=== PATIENT | female | born 1985 | race Caucasian/White ===

== ENCOUNTER 2020-05-15 22:54 | Emergency (ER) | payer SELFPAY ==
[2020-05-15 22:55] VITALS: BP 119/87; PULSE 104; RESP 16; TEMP 36.7; O2SAT 98; BMI 25.7
--- NOTE | 2020-05-15 23:20 | CTR_ITS ---
PROCEDURE INFORMATION: Exam: CT Head Without Contrast Exam date and time: 05/15/2020 11:34 PM Age: 35 years old Clinical indication: Patient HX: PT claims near syncope - felt like she was about to have a seizure; Additional info: Brittanie TECHNIQUE: Imaging protocol: Computed tomography of the head without contrast. Radiation optimization: All CT scans at this facility use at least one of these dose optimization techniques: automated exposure control; mA and/or kV adjustment per patient size (includes targeted exams where dose is matched to clinical indication); or iterative reconstruction. COMPARISON: No relevant prior studies available. RADIATION DOSE METRICS: Total DLP (mGy-cm): 774 FINDINGS: Brain: Normal. No hemorrhage. Unremarkable white matter. No mass effect. Cerebral ventricles: No ventriculomegaly. Bones/joints: Unremarkable. No acute fracture. Paranasal sinuses: Visualized sinuses are unremarkable. No fluid levels. Mastoid air cells: Visualized mastoid air cells are well aerated. Soft tissues: Unremarkable. CT/CT head wo con* 20264 IMPRESSION: No acute intracranial abnormality. Radiation Dose CTDIVOL = (mGy): DLP = 774 (mGy-cm)
--- NOTE | 2020-05-15 23:22 | ECG_ITS ---
[facility] Test Date: 2020-05-16 Pat Name: Joie Truong Department: Room: Gender: Female Account Executive: : 1985 Requested By: Edward Valle Order Number: [id number] Alf MD: Ana Westfall M.D. Measurements Intervals [place] Rate: 102 P: 68 LA: 128 QRS: -1 QRSD: 90 T: 53 QT: 347 QTc: 454 Interpretive Statements SINUS TACHYCARDIA WITH FREQUENT VENTRICULAR PREMATURE COMPLEXES LOW QRS VOLTAGE IN PRECORDIAL LEADS [QRS DEFLECTION < 1.0 mV IN CHEST LEADS] ABNORMAL RHYTHM ECG Compared to ECG 01/21/2019 18:17:08 Ventricular premature complex(es) now present Electronically Signed On 05-16-2020 19:42:59 CDT by Ana Westfall M.D. [id number]
[2020-05-15 23:36] LABS: Add Urine Microscopic? NO
[2020-05-15 23:40] LABS: Bilirubin Urine Neg (Negative); Blood Urine Neg (Negative); Glucose Urine UA Norm (Normal); Ketones Urine Negative (Negative); Leukocyte Esterase Urine Negative (Negative); Nitrate Urine Negative (Negative); Protein Urine Neg (Negative); Specific Gravity, Urine 1.025 (1.005-1.030); Urine Appearance Clear (CLEAR); Urine Color Yellow (Yellow); Urobilinogen Urine Norm (Negative); pH Urine 5 (5-7)
[2020-05-15 23:46] LABS: Amphetamines Screen Urine Positive (Negative); Barbiturates Screen Urine Negative (Negative); Benzodiazepines Screen Urine Negative (Negative); Cocaine Screen Urine Negative (Negative); Opiate Screen Urine Negative (Negative); PCP Screen Urine Negative (Negative); THC Screen Urine Negative (Negative)
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
[2020-05-16 00:13] VITALS: RESP 16
[2020-05-16 00:17] LABS: Basophils # 0.1 10^3/uL (0.0-0.1); Basophils % 0.5 %; Eosinophils # 0.4 10^3/uL (0.0-0.8); Eosinophils % 3.5 %; Hematocrit 49.4 % (37.0-47.0); Hemoglobin 15.6 g/dL (11.5-15.3); Lymphocytes # 2.7 10^3/uL (0.8-4.8); Mean Corpuscular HGB Conc 31.6 g/dL (30.0-36.0); Mean Corpuscular Hemoglobin 29.1 pg (28.0-34.0); Mean Corpuscular Volume 92.2 fL (81-99); Mean Platelet Volume 11.1 fL (7.4-10.4); Monocytes # 0.5 10^3/uL (0.2-0.9); Monocytes % 4.6 %; Neutrophils # 6.46 10^3/uL (1.8-7.7); Neutrophils % 64.1 %; Nucleated Red Blood Cells % 0 %; Platelet Count 238 10^3/cmm (130-400); Red Blood Count 5.36 10^6/uL (4.1-5.3); Red Cell Distribution Width 13.2 % (12.1-15.1); White Blood Count 10.1 10^3/uL (4.0-10.0)
[2020-05-16 00:18] LABS: HCG Qualitative Urine. Negative (Negative)
[2020-05-16 00:31] LABS: Alanine Aminotransferase 60 U/L (0-33); Alkaline Phosphatase 89 IU/L (35-105); Anion Gap 16.1 (5-19); Aspartate Amino Transferase 39 U/L (0-32); Blood Urea Nitrogen 13 mg/dL (6-20); Calcium 11.1 mg/dL (8.5-10.5); Carbon Dioxide 27 mmol/L (22-29); Chloride 99 mmol/L (98-107); Creatine Phosphokinase 47 U/L (26-192); Creatinine Clr Calc Pharmacy 131.2097; Globulin 3.7 g/dL (1.3-4.6); Glomerular Filtration Rate 115.1 mL/min (90-130); Glucose 82 mg/dL (65-115); Magnesium 2.3 mg/dL (1.7-2.3); Osmolality Calculated 285 mOsm/kg (285-295); Phosphorus 5.3 mg/dL (2.5-4.5); Potassium 4.1 mmol/L (3.5-5.1); Sodium 138 mmol/L (136-145); Total Bilirubin 0.2 mg/dL (0.15-1.2); Total Protein 8.7 g/dL (6.6-8.7)
[2020-05-16 00:36] LABS: Alcohol Level < 10 mg/dL (0-10)
[2020-05-16 01:08] VITALS: BP 122/86; PULSE 80; RESP 15; O2SAT 98
[2020-05-16 01:25] VITALS: BP 119/66; PULSE 111; RESP 18; O2SAT 95
== END 2020-05-16 01:26 | disposition home or self-care (01) ==
PROVIDERS: Emergency Provider Emergency Medicine; Family Provider Family Medicine
DX: R41.82 Altered mental status, unspecified (principal); F07.81 Postconcussional syndrome; F17.210 Nicotine dependence, cigarettes, uncomplicated
CPT/HCPCS: 12345; 70450; 80053; 80306; 80307; 81003; 81025; 82550; 83735; 84100; 85025; 93005; 99283